=== PATIENT | male | born 1985 | race Caucasian/White ===

== ENCOUNTER 2019-04-24 17:56 | Emergency (ER) | payer MEDICAID ==
[~2019-04-24] VITALS: Ht 165.1 cm; Wt 85.9 kg
[2019-04-24 18:15] VITALS: BP 187/112
--- NOTE | 2019-04-24 18:25 | NUR ---
AMB TO BED 3
--- NOTE | 2019-04-24 18:31 | NUR ---
PT BIB SELF FROM HOME AND WAS REFERRED FROM CLINIC FOR CHEST PAIN & HIGH BP 225/145. C/O LEFT CHEST PAIN RADIATING TO LEFT SHOULDER X LAST NIGHT. PAIN 7/10 AT THIS TIME. DENIES ANY N/V/D. DENIES ANY FEVER OR CHILLS. REPORTS OF HAVING SLIGHT BAILEY. PT DENIES ANY SOB AT THIS TIME. RESP EVEN AND NON-LABORED. PT BP 195/117 AT THIS TIME. HX OF HTN, STOPPED TAKING MEDS 7 MONTHS AGO. PT AAOX4. REPORTS OG HAVING TINGLING SENSATION WHILE HE CAME TO ER, DENIES ANY NUMBNESS. HAS BILATERAL STRENGTH. DENIES ANY ALLERGIC TO MEDICATION. ER MD TO SEE THE PT. WILL CONTINUE TO MONITOR PT. MED HX : HTN
--- NOTE | 2019-04-24 19:30 | NUR ---
PA AT BEDSIDE.
[2019-04-24] MEDS ORDERED: ASPIRIN 325 MG TAB PO ONE (19:35)
--- NOTE | 2019-04-24 19:48 | NUR ---
ADMINISTERED MEDS TO PT ORDERED. X-RAY AT THE BEDSIDE. DR. RIVERA ASSESSING PT AT THE BEDSIDE.
[2019-04-24 19:53] LABS: BASOPHILS % (AUTO) 0.2 % (0.0-2.0); EOSINOPHILS # (AUTO) 0.1 K/uL (0-0.4); EOSINOPHILS % (AUTO) 0.8 % (0.0-4.0); HEMATOCRIT 45.5 % (36-52); HEMOGLOBIN 15.7 g/dL (12.0-18.0); LYMPHOCYTES # (AUTO) 2.8 K/uL (2.0-11.5); LYMPHOCYTES % (AUTO) 32.6 % (20.5-51.1); MEAN CORPUSCULAR HEMOGLOBIN 31 pg (27-31); MEAN CORPUSCULAR HGB CONC 35 g/dL (33-37); MEAN CORPUSCULAR VOLUME 90.2 fL (80-94); MONOCYTES # (AUTO) 0.5 K/uL (0.8-1.0); MONOCYTES % (AUTO) 5.7 % (1.7-9.3); NEUTROPHILS # (AUTO) 5.2 K/uL (1.8-7.7); NEUTROPHILS % (AUTO) 60.7 % (42.2-75.2); PLATELET COUNT (AUTO) 242 K/uL (140-450); RED BLOOD CELL COUNT(AUTO) 5.04 MIL/uL (4.20-6.10); RED CELL DISTRIBUTION WIDTH 13.6 % (11.6-13.7); WHITE BLOOD COUNT (AUTO) 8.6 K/uL (4.8-10.8)
--- NOTE | 2019-04-24 20:09 | NUR ---
CHECKED ON PT. STATES PAIN NONE AFTER HAVING MEDS. HR 84 AT [facility] BEDSIDE MONITOR . WILL CONTINUE TO MONITOR PT.
[2019-04-24 20:14] LABS: PROTHROMBIN TIME 9.4 secs (10.8-13.4)
[2019-04-24 20:31] LABS: ANION GAP 12.8 (8-16); CARBON DIOXIDE 27.5 mmol/L (21-32); CREATININE 1.1 mg/dL (0.7-1.3); POTASSIUM 3.3 mmol/L (3.5-5.1); TOTAL BILIRUBIN 0.4 mg/dL (0.0-1.0)
[2019-04-24 20:32] LABS: ALBUMIN 3.8 g/dL (3.4-5.0)
[2019-04-24 21:15] VITALS: BP 180/111
--- NOTE | 2019-04-24 21:15 | NUR ---
Patient discharged with v/s stable. Written and verbal after care instructions given and explained. Patient alert, oriented and verbalized understanding of instructions. Ambulatory with steady gait. All questions addressed prior to discharge. ID band removed. Patient advised to follow up with PMD. Rx of NORVASC 5 MG given. Patient educated on indication of medication including possible reaction and side effects. Opportunity to ask questions provided and answered.
== END 2019-04-24 21:15 | disposition home or self-care (01) ==
LOC: MED 17:56
DX: R07.89 Other chest pain (principal); I10 Essential (primary) hypertension
CPT/HCPCS: 36415; 71045; 80053; 83690; 84484; 85025; 85610; 93005; 99284